=== PATIENT | female | born 1955 | race Two or more races ===

== ENCOUNTER 2025-04-21 19:17 | Emergency (ER) | payer OTHER ==
[~2025-04-21] VITALS: Ht 157.5 cm; Wt 80.7 kg
[2025-04-21] MEDS ORDERED: FAMOTIDINE/PF 20 MG/2 ML VIAL IV ONE (20:15)
[2025-04-21] MEDS ORDERED: LACTOBACILLUS ACIDOPHILUS 1 CAP CAP PO ONE ×2 (20:15→22:55)
[2025-04-21] MEDS ORDERED: 0.9 % SODIUM CHLORIDE 1,000 ML IV ONE (20:15)
[2025-04-21] MEDS ORDERED: ONDANSETRON HCL 2 MG/ML VIAL IV ONE (20:15)
[2025-04-21] MEDS ORDERED: PROTONIX40 MG PO (20:20)
[2025-04-21] MEDS ORDERED: BACLOFEN10 MG PO (20:20)
[2025-04-21] MEDS ORDERED: LIPITOR40 MG PO (20:20)
[2025-04-21] MEDS ORDERED: LOSARTAN POTASS50 MG PO (20:20)
[2025-04-21] MEDS ORDERED: FAMOTIDINE/PF 20 MG/2 ML VIAL ONE (22:55)
[2025-04-21] MEDS ORDERED: ONDANSETRON HCL 2 MG/ML VIAL ONE (22:55)
[2025-04-21 23:07] LABS: BASO % 0.3 % (0.1-1.2); EOS # 0.00 (0.04-0.54); EOS % 0.0 % (0.7-7.0); LYMPH # 1.02 (1.18-3.74); LYMPH % 17.6 % (19.3-53.1); MEAN PLATELET VOLUME 10.30 fl (9.4-12.4); MONO # 0.79 (0.24-0.82); NEUT # 3.96 (1.56-6.13); NEUT % 68.2 % (34.0-71.1); RED CELL DISTRIBUTION WIDTH 14.0 % (11.6-14.4)
[2025-04-21 23:18] LABS: MONO % 13.6 % (4.7-12.5)
[2025-04-21 23:29] LABS: INR 0.99
[2025-04-21 23:34] LABS: ALT/SGPT 161.0 U/L (12-78); AST/SGOT 112.0 U/L (15-37); BILIRUBIN TOTAL 0.74 mg/dL (0.3-1.2); BUN CREA RATIO 17.0 (7.0-25.0); CREATININE SERUM 0.72 mg/dL (0.55-1.02); GFR 80.79; GLOBULINA 3.9 G/DL (2.4-3.5); GLUCOSE FASTING 133.0 mg/dL (65-100); OSMOLALITY SERUM 290.0 MOSM/KG (275-295)
[2025-04-22 01:50] LABS: URINE APPEARANCE Clear; URINE BILIRRUBIN Negative (NEGATIVE); URINE BLOOD Negative; URINE COLOR Yellow; URINE GLUCOSE Negative (NEGATIVE); URINE KETONE 15 (NEGATIVE); URINE LEUKOCYTE Trace; URINE NITRATE Negative; URINE PROTEIN Negative (NEGATIVE); URINE UROBILINOGEN 1.0 E.U./dl
[2025-04-22 01:55] LABS: URINE BACTERIA 99.5 uL (0.0-1933); URINE EPITHELIAL CELLS 20.5 uL (0.0-38.8); URINE RBC 6.9 uL (0.0-20.8); URINE WBC 13.6 uL (0.0-23.2)
[2025-04-22 02:03] LABS: TYPE CELLS SQUAMOUS; URINE CAST 0.42 uL (0.0-1.40)
== END 2025-04-22 02:49 | disposition home or self-care (01) ==
LOC: ER 19:17
PROVIDERS: General Practice
DX: R42 Dizziness and giddiness (principal); R53.1 Weakness; J11.1 Influenza due to unidentified influenza virus with other respiratory manifestations; J20.9 Acute bronchitis, unspecified; R11.2 Nausea with vomiting, unspecified; A08.8 Other specified intestinal infections; I10 Essential (primary) hypertension; E11.9 Type 2 diabetes mellitus without complications; Z88.6 Allergy status to analgesic agent